=== PATIENT | female | born 1970 | race Caucasian/White ===

== ENCOUNTER 2019-09-20 14:41 | Emergency (ER) | payer BC, OTHER ==
[2019-09-20 16:39] LABS: ABS Eosinophils 0.1 10^3/ul (0-0.6); ABS Lymphocytes 1.8 10^3/ul (1.0-4.8); ABS Monocytes 0.4 10^3/ul (0-0.8); ABS Neutrophils 4.8 10^3/ul (1.5-7.7); Eosinophil % 1.1 %; Hematocrit 36 % (35-47); Hemoglobin 12.4 g/dL (12.0-16.0); Lymphocyte % 25.1 %; Mean Corpuscular HGB Conc 35 g/dL (31-36); Mean Corpuscular Hemoglobin 29 pg (27-31); Mean Corpuscular Volume 82 fL (80-97); Mean Platelet Volume 6.4 fL (7.4-10.4); Platelet Count 338 10^3/uL (150-450); Red Blood Count 4.33 10^6 /uL (3.70-4.87); Red Cell Distribution Width 14 % (10-15); White Blood Count 7.1 10^3/uL (3.5-10.8)
[2019-09-20 16:52] LABS: Albumin 3.9 g/dL (3.2-5.2); Calcium 8.8 mg/dL (8.6-10.3); Magnesium 2.1 mg/dL (1.9-2.7); Potassium 3.4 mmol/L (3.5-5.0); Total Bilirubin 0.3 mg/dL (0.2-1.0)
[2019-09-20 16:58] LABS: Albumin/Globulin Ratio 1.3 (1-3); BUN/Creatinine Ratio 18.3 (8-20); EGFR Non-African American 86.8 (>60); Total Protein 6.9 g/dL (6.4-8.9)
[2019-09-20] MEDS ORDERED: NS 0.9% 1000 ML** 1,000 ML IV ONE (17:01)
--- NOTE | 2019-09-20 17:03 | ED ---
GI/ HPI - HPI Summary HPI Summary: Patient is a 49 y/o F presenting to [facility] with complaints of abdominal pain, nausea, and diarrhea. She states that she has been having episodes of diarrhea for the past week. On 09/18/19, patient reports that she experienced onset of lower abdominal pain that is characterized as a shooting sensation. Pain is constant but waxes and wanes in intensity. Movement aggravates her pain. Patient states that she has had increased urgency to have a bowel movement but notes minimal production of stool. no blood, no black. No pain with bowel movements and no black/bloody stools noted. She estimates having 1-2 normal bowel movements over past week. She endorses lower back pain but denies vomiting , dysuria, changes in PO intake, vaginal discharge/itching/odor. She is unsure of fever as she has not measured her temperature. Patient has never had a colonoscopy. Patient has never had abdominal surgery. FMHx of diverticulitis in mother is noted. She has not had a colonscopy previously. Home medications and allergies are reviewed. - History of Current Complaint Chief Complaint: EDAbdPain Time Seen by Provider: 09/20/19 16:12 Stated Complaint: ABD PAIN/FREQ URINATION/DIARREA PER PT Hx Obtained From: Patient, Family/[employer] Onset/Duration: Started Days Ago, Still Present Timing: Lasting Days Severity: Moderate Current Severity: Moderate Pain Intensity: 5 Pain Characteristics: Other: - shooting Associated Signs and Symptoms: Positive: Back Pain, Nausea, Abdominal Pain, Other: - patient with increased urgency to have a bowel movement but notes minimal production of stool. No pain with bowel movements and no black/bloody stools noted. No changes in PO intake. Negative: Vomiting, Dysuria Additional Signs & Symptoms: Positive: Other: - no vaginal odor or itching. Negative: Vaginal Discharge - Allergy/Home Medications Allergies/Adverse Reactions: Allergies Allergy/AdvReac Type Severity Reaction Status Date / Time No Known Allergies Allergy Verified 09/20/19 14:48 PMH/Surg Hx/FS Hx/Imm Hx Previously Healthy: Yes Endocrine/Hematology History: Denies: Hx Anticoagulant Therapy, Hx Diabetes Cardiovascular History: Denies: Hx Congestive Heart Failure, Hx Hypertension History: Denies: Hx Renal Disease Infectious Disease History: No Infectious Disease History: Denies: Traveled Outside the [place] in Last 30 Days - Family History Known Family History: Positive: Other - FMHx of diverticulitis in mother , Non- Contributory - Social History Lives: With Family Alcohol Use: Rare Substance Use Type: Reports: None Smoking Status (MU): Never Smoked Tobacco Review of Systems Constitutional: Negative Eyes: Negative Gastrointestinal: Other - Patient states that she has had increased urgency to have a bowel movement but notes minimal production of stool. No pain with bowel movements and no black/bloody stools noted. No changes in PO intake Positive: Abdominal Pain, Diarrhea, Nausea. Negative: Vomiting Genitourinary: Other - negative - vaginal discharge/itching/odor Negative: dysuria Musculoskeletal: Other - positive - lower back pain All Other Systems Reviewed And Are Negative: Yes Physical Exam - Summary Physical Exam Summary: Vital Signs Reviewed: Yes A+Ox3, mild discomfort across lower abdomen Eyes: Conjunctiva Clear, KASIE. EOM intact and full ENT: Hearing grossly normal TM x 2 clear, mmoist, uvula midline, no exudate, no erythema Neck: Positive: Supple Respiratory: Positive: No respiratory distress, No accessory muscle use + CTA throughout no w/r Cardiovascular: RRR nl s1, s2 no m/r CBT <2 sec abd soft + BS nt + TTP lower quad L>R, no guarding, no distension Musculoskeletal Exam: BARROS x 4 without difficulty Strength Intact, ROM Intact Neurological: Positive: Alert, + sensation throughout Psychological: Positive: Normal Response To examiner Skin: Positive: no rash, no ecchymosis Triage Information Reviewed: Yes Vital Signs On Initial Exam: Initial Vitals Temp Pulse Resp BP Pulse Ox 98.3 F 86 14 176/86 94 09/20/19 14:43 09/20/19 14:43 09/20/19 14:43 09/20/19 14:43 09/20/19 14:43 Procedures - Sedation Patient Received Moderate/Deep Sedation with Procedure: No Diagnostics - Vital Signs Vital Signs Temp Pulse Resp BP Pulse Ox 09/20/19 16:20 78 99 09/20/19 16:18 79 167/95 98 09/20/19 14:43 98.3 F 86 14 176/86 94 - Laboratory Lab Results: Lab Results 09/20/19 09/20/19 Range/Units 16:26 16:26 WBC 7.1 (3.5-10.8) 10^3/uL RBC 4.33 (3.70-4.87) 10^6 /uL Hgb 12.4 (12.0-16.0) g/dL Hct 36 (35-47) % MCV 82 (80-97) fL MCH 29 (27-31) pg MCHC 35 (31-36) g/dL RDW 14 (10-15) % Plt Count 338 (150-450) 10^3/uL MPV 6.4 L (7.4-10.4) fL Neut % (Auto) 67.3 % Lymph % (Auto) 25.1 % [place] % (Auto) 6.1 % Eos % (Auto) 1.1 % Baso % (Auto) 0.4 % Absolute Neuts (auto) 4.8 (1.5-7.7) 10^3/ul Absolute Lymphs (auto) 1.8 (1.0-4.8) 10^3/ul Absolute Monos (auto) 0.4 (0-0.8) 10^3/ul Absolute Eos (auto) 0.1 (0-0.6) 10^3/ul Absolute Basos (auto) 0.0 (0-0.2) 10^3/ul Absolute Nucleated RBC 0.0 10^3/ul Nucleated RBC % 0.0 Sodium 137 (135-145) mmol/L Potassium 3.4 L (3.5-5.0) mmol/L Chloride 104 (101-111) mmol/L Carbon Dioxide 28 (22-32) mmol/L Anion Gap 5 (2-11) mmol/L BUN 13 (6-24) mg/dL Creatinine 0.71 (0.51-0.95) mg/dL Est GFR ( Amer) 105.0 (>60) Est GFR (Non-Af Amer) 86.8 (>60) BUN/Creatinine Ratio 18.3 (8-20) Glucose 163 H (70-100) mg/dL Calcium 8.8 (8.6-10.3) mg/dL Magnesium 2.1 (1.9-2.7) mg/dL Total Bilirubin 0.30 (0.2-1.0) mg/dL AST 15 (13-39) U/L ALT 25 (7-52) U/L Alkaline Phosphatase 58 (34-104) U/L Total Protein 6.9 (6.4-8.9) g/dL Albumin 3.9 (3.2-5.2) g/dL Globulin 3.0 (2-4) g/dL Albumin/Globulin Ratio 1.3 (1-3) Lipase 26 (11.0-82.0) U/L Result Diagrams: 09/20/19 16:26 09/20/19 16:26 Lab Statement: Any lab studies that have been ordered have been reviewed, and results considered in the medical decision making process. Re-Evaluation - Re-Evaluation First Eval Re-Evaluation Time: 17:59 Comment: Patient states that she just had a painful bowel movement. She is drinking contrast currently. Labs so done so far were reviewed. Patient declines nausea or analgeia medication. Second Eval Re-Evaluation Time: 18:45 Comment: just back from CT - will sign out at 1900. pt aware GIGU Course/Dx - Course Course Of Treatment: Patient presents to urgent care with 5-6 days of progressive lower abdominal pain and cramping. Patient states she gets here to have a bowel movement but little stool is produced. Patient denies fevers or chills. Patient denies any dysuria. Patient has taken a couple doses of Motrin with little improvement. Patient has never had a colonoscopy. Patient vital signs are stable. On exam patient is a tenderness along the lower quadrants left greater than right. No guarding or rebound. Patient is on his CVA. Patient is not toxic appearing. We'll check labs, CT for diverticulitis/ appendicitis/colitis. Stool samples of patient; urine. At this time patient declines antiemetics or analgesia. We will monitor for change in symptoms. Patient comfortable in agreement with plan. - Diagnoses Provider Diagnoses: Diverticulitis Discharge ED - Sign-Out/Discharge Documenting (check all that apply): Sign-Out Patient Signing out patient TO: Toan Fishman - Discharge Plan Condition: Good Disposition: HOME Prescriptions: Amoxicillin/Clavulanate TAB* [Augmentin TAB 875*] 875 mg PO BID #20 tab oxyCODONE/Acetamin 5/325 MG* [Percocet 5/325 TAB*] 1 tab PO Q4H PRN #12 tab MDD 4 PRN Reason: Pain - Severe Patient Education Materials: Diverticulitis (ED) Referrals: Srini LOREDO,Maikel Ram [Primary Care Provider] - - Billing Disposition and Condition Condition: GOOD Disposition: Home - Attestation Statements Document Initiated by Max: Yes Documenting Scribe: TIFFANY KERN Provider For Whom Max is Documenting (Include Credential): TOAN ONEIL MD Scribe Attestation: TIFFANY Saul, scribed for TOAN ONEIL MD on 09/21/19 at 1825. Scribe Documentation Reviewed: Yes Provider Attestation: The documentation as recorded by the TIFFANY bennett accurately reflects the service I personally performed and the decisions made by me, TOAN ONEIL MD Status of Scribe Document: Viewed
[2019-09-20] MEDS ORDERED: Iohexol 300* (CONTRAST) 10 ML SDV IV ONE (17:14)
[2019-09-20 17:17] LABS: Urine Appearance Clear; Urine Bilirubin Negative (Negative); Urine Blood 1+ (Negative); Urine Color Yellow; Urine Glucose Negative (Negative); Urine Ketones Negative (Negative); Urine Nitrite Negative (Negative); Urine Protein Negative (Negative); Urine Specific Gravity 1.025 (1.010-1.030); Urine Urobilinogen Negative (Negative)
[2019-09-20 17:18] LABS: Urine Bacteria Absent (Absent); Urine Red Blood Cell 1+(3-5/hpf) (Absent); Urine Squamous Epithelial Cell Present (Absent); Urine White Blood Cell Absent (Absent)
--- NOTE | 2019-09-20 19:16 | ED ---
Progress - Progress Note Progress Note: This pt is a sign out to Dr. Toan Fishman MD from Dr. Dyan Valle MD at shift change 1900 09/20/[address] A/P, and disposition. - Results/Orders Results/Orders: CT A/P: Colonic wall thickening with pericolonic edema and inflamed diverticulum involving the mid left colon compatible with acute diverticulitis. No abscess or perforation. However, colonic wall thickening is also noted throughout much of the colon raising the possibility of colitis. Recommend follow up CT after appropriate therapy to ensure clearing. ED physician has reviewed this report. Re-Evaluation - Re-Evaluation First Eval Re-Evaluation Time: 20:00 Comment: Pt was informed of imaging results. She is aggreeable to a discharge plan. Course/Dx - Course Course Of Treatment: This pt is a sign out to Dr. Toan Fishman MD from Dr. Dyan Valle MD at shift change 1900 09/20/[address] A/P, and disposition. CT A/P: Colonic wall thickening with pericolonic edema and inflamed diverticulum. involving the mid left colon compatible with acute diverticulitis. No abscess. or perforation. However, colonic wall thickening is also noted throughout much. of the colon raising the possibility of colitis. Recommend follow up CT after appropriate therapy to ensure clearing. She will be discharged home with a Dx of Diverticulitis. - Diagnoses Provider Diagnoses: Diverticulitis Discharge ED - Sign-Out/Discharge Documenting (check all that apply): Patient Departure - discharge - Discharge Plan Condition: Good Disposition: HOME Prescriptions: Amoxicillin/Clavulanate TAB* [Augmentin TAB 875*] 875 mg PO BID #20 tab oxyCODONE/Acetamin 5/325 MG* [Percocet 5/325 TAB*] 1 tab PO Q4H PRN #12 tab MDD 4 PRN Reason: Pain - Severe Patient Education Materials: Diverticulitis (ED) Referrals: Srini LOREDO,Maikel Ram [Primary Care Provider] - - Billing Disposition and Condition Condition: GOOD Disposition: Home - Attestation Statements Document Initiated by Scribe: Yes Documenting Scribe: Iglesia Fernández Provider For Whom Scribe is Documenting (Include Credential): Toan Fishman MD Scribe Attestation: Iglesia Saul, scribed for Toan Fishman MD on 09/21/19 at 1902. Scribe Documentation Reviewed: Yes Provider Attestation: The documentation as recorded by the scribe, Iglesia Fernández accurately reflects the service I personally performed and the decisions made by me, Toan Fishman MD Status of Scribe Document: Viewed
[2019-09-20 19:28] LABS: TSH (Thyroid Stimulating Horm) 1.58 mcIU/mL (0.34-5.60)
[2019-09-20 20:22] VITALS: BP 140/84
== END 2019-09-20 20:21 | disposition home or self-care (01) ==
LOC: ED 14:41
DX: K57.32 Diverticulitis of large intestine without perforation or abscess without bleeding (principal)
CPT/HCPCS: 36415; 74177; 80053; 81003; 81015; 82272; 83630; 83690; 83735; 84443; 85025; 87045; 87046; 87077; 87899; 96360; 99282; Q9967

== ENCOUNTER 2021-12-21 13:25 | Observation (INO) ==
[2021-12-21 18:42] LABS: ABS Eosinophils 0.1 10^3/ul (0-0.6); ABS Lymphocytes 1.9 10^3/ul (1.0-4.8); ABS Monocytes 0.4 10^3/ul (0-0.8); ABS Neutrophils 4.3 10^3/ul (1.5-7.7); Eosinophil % 1.8 %; Hematocrit 39 % (35-47); Hemoglobin 12.9 g/dL (12.0-16.0); Lymphocyte % 28.3 %; Mean Corpuscular HGB Conc 33 g/dL (31-36); Mean Corpuscular Hemoglobin 28 pg (27-31); Mean Corpuscular Volume 84 fL (80-97); Nucleated Red Blood Cells % 0.1; Platelet Count 319 10^3/uL (150-450); Red Blood Count 4.68 10^6 /uL (3.70-4.87); Red Cell Distribution Width 14 % (10-15); White Blood Count 6.8 10^3/uL (3.5-10.8)
[2021-12-21 19:04] LABS: High Sens Troponin Baseline < 3 pg/mL (<15)
[2021-12-21 19:07] LABS: ALT 23 U/L (7-52); AST 18 U/L (13-39); Albumin 4.2 g/dL (3.2-5.2); Albumin/Globulin Ratio 1.6 (1-3); Alkaline Phosphatase 64 U/L (35-149); Anion Gap 6 mmol/L (2-11); Blood Urea Nitrogen 21 mg/dL (6-24); CO2 Carbon Dioxide 30 mmol/L (22-32); Calcium 9.4 mg/dL (8.6-10.3); Chloride 103 mmol/L (101-111); Globulin 2.6 g/dL (2-4); Glucose 90 mg/dL (70-100); Magnesium 2.3 mg/dL (1.9-2.7); Potassium 4.1 mmol/L (3.5-5.0); Sodium 139 mmol/L (135-145); Total Protein 6.8 g/dL (6.4-8.9); eGFR CKD-EPI 106.8 (>60)
[2021-12-21 19:19] LABS: TSH Ultra Thyroid Stim Horm 1.97 mcIU/mL (0.34-5.60)
[2021-12-21 19:57] LABS: Urine Appearance Clear; Urine Bilirubin Negative (Negative); Urine Blood Negative (Negative); Urine Color Straw; Urine Glucose Negative (Negative); Urine Ketones Negative (Negative); Urine Nitrite Negative (Negative); Urine Protein Negative (Negative); Urine Specific Gravity 1.009 (1.002-1.030); Urine Urobilinogen Negative (Negative)
[2021-12-21 20:19] LABS: High Sensitivity Troponin 1 Hr 3 pg/mL (<15)
[2021-12-22] MEDS ORDERED: Ondansetron 4 mg VIAL 2 MG/ML 2 ml VIAL IV PRN (01:21)
[2021-12-22] MEDS: Enoxaparin 40 MG/0.4 ML SYR SUBCUT SCH (04:05)
[2021-12-22 10:15] LABS: Creatine Kinase 81 U/L (10-223); Rheumatoid Factor < 10 IU/mL (<15)
[2021-12-22 10:46] LABS: Folate > 20.00 ng/mL (5.90-24.80); Vitamin B12 543 pg/mL (180-914)
[2021-12-22] MEDS ORDERED: Gadoteridol (CONTRAST) 279.3 MG/ML 10 ML IV ONE (19:07)
[2021-12-23] MEDS: Enoxaparin 40 MG/0.4 ML SYR SUBCUT SCH (01:46)
[2021-12-23 11:28] VITALS: BP 151/71
== END 2021-12-23 13:25 | disposition home or self-care (01) ==
LOC: ED 13:25 → EDHOLD 13:25 → SUATTDRO 12-22 01:21 → MED 12-22 04:45
PROVIDERS: ADMIT Internal Medicine; ATTEND Hospitalist